=== PATIENT | male | born 2000 | race Caucasian/White ===

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

== ENCOUNTER 2018-03-30 22:51 | Emergency (ER) | END 2018-03-30 23:31 | disposition home or self-care (01) ==

== ENCOUNTER 2018-04-04 06:29 | Emergency (ER) | END 2018-04-04 08:17 | disposition home or self-care (01) ==

== ENCOUNTER 2018-04-06 09:13 | Emergency (ER) | END 2018-04-06 11:04 | disposition home or self-care (01) ==

== ENCOUNTER 2018-12-03 19:35 | Emergency (ER) | payer BC ==
[~2018-12-03] VITALS: Ht 175.3 cm; Wt 132.1 kg
[~2018-12-03 19:35] MED LIST changes: +ACET325T33 PO; +ALBU8.5H8 INH; +AZIT250T PO; +DICY10CA40 PO; -DICY10CA60 PO; +DOXY100T20 PO; -IBUP800T25 PO; +IBUP800T48 PO; +NAPR-985 PO; +PROM5SYR2 PO; +TRAM50TA2 PO
[2018-12-03 19:37] VITALS: Ht 175.3 cm; Wt 132.1 kg
[2018-12-03] MEDS ORDERED: FLUORESCEIN STRIP LEFT EYE ONE (21:30)
[2018-12-03 22:01] VITALS: BP 135/85; PULSE 74; RESP 16
--- NOTE | 2018-12-03 22:18 | ERD ---
ER Documentation Chief Complaint Chief Complaint LEFT EYE PAIN- CONTACT LENSE STUCK IN EYE HPI This is a 17-year-old male patient who presents emergency room with complaint of contact lens stuck in the left eye. + Blurred vision, + itching. Put contacts in at 06 100 this morning attempted to take out at 1730 this evening, right lens easily removed, left lens stuck to front of eye. No pain, no chronic medical conditions. ROS All systems reviewed and are negative except as per history of present illness. Medications Home Meds Active Scripts Acetaminophen* (Tylenol*) 325 Mg Tablet, 2 TAB PO Q6 PRN for PAIN AND OR ELEVATED TEMP, #30 TAB Prov:JOB ALLEN PA-C 04/04/18 Tramadol HCl (Tramadol HCl) 50 Mg Tablet, 50 MG PO Q6 PRN for PAIN, #20 TAB Prov:JOB ALLEN PA-C 04/04/18 Doxycycline Hyclate* (Doxycycline Hyclate*) 100 Mg Tablet.dr, 100 MG PO BID for 7 Days, TAB Prov:JOB ALLEN PA-C 04/04/18 Ibuprofen* (Motrin*) 800 Mg Tab, 800 MG PO Q6, #30 TAB Prov:CIERRA QUINN PA-C 03/30/18 Doxycycline Hyclate* (Doxycycline Hyclate*) 100 Mg Tablet.dr, 100 MG PO BID for 10 Days, TAB Prov:CIERRA QUINN PA-C 03/30/18 Naproxen* (Naprosyn*) 500 Mg Tablet, 500 MG PO BID PRN for PAIN AND/OR INFLAMMATION, #30 TAB Prov:KEKE TUBBSC 10/25/17 Promethazine HCl/Codeine (Prometh-Codein 6.25-10 mg/5 ml) 5 Ml Syrup, 5 ML PO QID for 5 Days Prov:SANTANA WALTER MD 05/01/17 Albuterol Sulfate* (Proair HFA*) 8.5 Gm Hfa.aer.ad, 2 PUFF INH Q4, #1 INHALER Prov:SANTANA WALTER MD 05/01/17 Prednisone* (Prednisone*) 20 Mg Tab, 60 MG PO DAILY for 3 Days, TAB Start May 02, 2017 Prov:SANTANA WALTER MD 05/01/17 Azithromycin* (Zithromax*) 250 Mg Tablet, 250 MG PO .ZPACK DIRECTED, #6 TAB TAKE 500 MG (2 TABS) THE FIRST DAY THEN 250 MG (1 TAB) DAYS 2-5 Prov:SANTANA WALTER MD 05/01/17 Fluticasone Propionate (Flonase Allergy Relief) 9.9 Ml [place].susp, 1 SPRAY NASAL BID, #1 BOTTLE TO EACH NOSTRIL Prov:ANDREINA JONES PA-C 04/04/17 Pseudoephedrine Hcl* (Pseudoephedrine Hcl*) 30 Mg Tablet, 30 MG PO Q6 PRN for CONGESTION, #30 TAB Prov:ANDREINA JONES PA-C 04/04/17 Ibuprofen* (Ibuprofen*) 600 Mg Tablet, 600 MG PO Q8, #20 TAB Prov:YOLA PETERSON MD 07/03/16 Dicyclomine HCl (Dicyclomine HCl) 10 Mg Capsule, 10 MG PO QID for 3 Days, CAP Prov:EDVIN VAUGHN 12/18/15 Ciprofloxacin Hcl* (Ciprofloxacin Hcl*) 500 Mg Tablet, 500 MG PO BID for 5 Days, TAB Prov:EDVIN VAUGHN 12/18/15 Ibuprofen* (Motrin*) 800 Mg Tab, 800 MG PO Q6H PRN for PAIN AND OR ELEVATED TEMP, #30 TAB Prov:JAYME PHELPS NP 08/03/15 Prednisone* (Prednisone*) 20 Mg Tab, 20 MG PO DAILY for 3 Days, TAB Prov:SANTANA BENÍTEZ PA-C 03/31/15 Reported Medications [same meds] No Conflict Check 03/18/12 Ibuprofen (Motrin) 400 Mg Tablet 06/25/10 Allergies Allergies: Coded Allergies: No Known Allergies (Verified Allergy, Mild, 12/18/15) PMhx/Soc History of Surgery: No Anesthesia Reaction: No Hx Neurological Disorder: Yes (Brain "Cyst") Hx Respiratory Disorders: Yes (ASTHMA) Hx Cardiac Disorders: No Hx Psychiatric Problems: No Hx Miscellaneous Medical Probl: No Hx Alcohol Use: No Hx Substance Use: No Hx Tobacco Use: Yes (2 CIG/2WEEKS) Smoking Status: Current some day smoker Fmx Family History: No diabetes, No coronary disease, No other Physical Exam Vitals Vital Signs Date Temp Pulse Resp B/P (MAP) Pulse Ox O2 O2 Flow FiO2 Time Delivery Rate 12/03/18 97.0 74 16 135/85 98 Room Air 22:01 (102) 12/03/18 99.1 77 19 138/77 97 19:37 (97) Physical Exam Const: No acute distress Head: Atraumatic Eyes: Normal Conjunctiva, PERRL, EOMI, no redness, no swelling, +contact lens observed in left eye centered over cornea ENT: Normal External Ears, Nose and Mouth. Neck: Full range of motion. No meningismus. Neur: Awake and alert, CNII-XII intact, clear speech, steady gait Psych: Normal Mood and Affect Results 24 hrs Current Medications Medications Dose Sig/Amy Start Time Status Last (Trade) Ordered Route PRN Stop Time Admin Dose Reason Admin Fluorescein 1 strip ONCE ONCE 12/03/18 DC Sodium LEFT EYE 21:30 ([id number] 12/03/18 21:31 p) Procedures/MDM PROCEDURES/MDM PROCEDURES: Left contact lens easily removed intact with irrigation with normal saline and use of cotton tip applicator Floor seen stain negative for corneal abrasion Patient states he could see clearly once contact lens was out and he was using his glasses Itchiness resolved MDM: This is a 17-year-old male patient who presents emergency room with complaint of contact lens, blurred vision, itching to left eye. Symptoms all completely resolved and moravian of normal vision with removal of contact lens. Fluorescein stain negative for eye injury or infection. Clinical exam does not indicate corneal abrasion, corneal laceration, iritis, conjunctivitis, keratitis, foreign body. Patient has been instructed on care of eye, use of hydrating eyedrops, and signs and symptoms of worsening of condition and when to see up cafe helper and when to return to the emergency room. DISPOSITION and PLAN: RX: The patient has been discharge home to follow-up with [facility] paraprofessional. Departure Diagnosis: Primary Impression: Eye foreign body Condition: Stable Patient Instructions: Corneal Injury, Contact Lens Referrals: [facility] Hours: Mon - Fri 9:00 AM - 5:00 PM Additional Instructions: Thank you very much for allowing us to participate in your care. Your health and safety is our top priority at [facility]. Call your primary care doctor TOMORROW for an appointment during the next 2-4 days and bring all the information and medications prescribed. Have prescriptions filled and follow precisely the directions on the label. If the symptoms get worse and your provider is unavailable, return to the Emergency Department immediately. DALTON FERNANDEZ NP Dec 03, 2018 22:18
== END 2018-12-03 22:02 | disposition home or self-care (01) ==
LOC: FTE 19:35
DX: T15.02XA Foreign body in cornea, left eye, initial encounter (principal); J45.909 Unspecified asthma, uncomplicated; F17.210 Nicotine dependence, cigarettes, uncomplicated; X58.XXXA Exposure to other specified factors, initial encounter; Y92.9 Unspecified place or not applicable
CPT/HCPCS: 65220; 99283; Z7610